=== PATIENT | male | born 1980 | race Caucasian/White ===

== ENCOUNTER 2016-11-14 12:19 | Emergency (ER) | payer SELFPAY ==
[~2016-11-14 12:19] MED LIST: PERCOCET 5/3251 TAB PO
[2016-11-14] MEDS ORDERED: ANXIETY/DEPRESSION (12:26)
[2016-11-14] MEDS ORDERED: NORCO 5-325 TA1 EACH PO (14:39)
== END 2016-11-14 14:57 ==
LOC: EDMED 12:19
PROC: 2W3SX1Z Immobilization of Right Foot using Splint (ICD-10-PCS; principal; 2016-11-14)
DX: S92.011A Displaced fracture of body of right calcaneus, initial encounter for closed fracture (principal); F31.9 Bipolar disorder, unspecified; F17.210 Nicotine dependence, cigarettes, uncomplicated; W17.89XA Other fall from one level to another, initial encounter; Y92.009 Unspecified place in unspecified non-institutional (private) residence as the place of occurrence of the external cause